=== PATIENT | male | born 1995 | race Caucasian/White ===

== ENCOUNTER 2023-06-15 01:39 | Outpatient (CLI) | payer BC, SELFPAY ==
[2023-06-17 09:45] LABS: Acrosom Defect 23.5 %; Appearance Normal; Container Type 50 mL Conical; Double Forms 1.5 %; Head Shape Abnormal 28.5 %; Motile/Ejaculate 3.8 x10(6) (>=9.0); Motile/mL 2.1 x10(6) (>=6.0); Motility 46 % (>=40); Semen Volume 1.8 mL (>=1.5); Sperm/mL 4.6 x10(6) (>=15.0); Strict Morph NL 1.5 % (>=4.0); Study Type Semen
== END 2023-06-15 01:40 | disposition home or self-care (01) ==
LOC: LBO 01:39
PROVIDERS: Visit Provider Obstetrics & Gynecology
DX: Z31.41 Encounter for fertility testing (principal)
CPT/HCPCS: 89240; 89310

== ENCOUNTER 2023-12-08 19:03 | Outpatient (REF) | payer BC, SELFPAY ==
[2023-12-12 10:51] LABS: Abstinence 2.5 d; Appearance Normal; Container Type 50 mL Conical; Midpiece Defect 3.5 %; Motile/Ejaculate 15.8 x10(6) (>=9.0); Motile/mL 6.3 x10(6) (>=6.0); Motility 37 % (>=40); Semen Volume 2.5 mL (>=1.5); Strict Morph NL 3.5 % (>=4.0); Study Type Semen; pH 7.5 (>=7.2)
== END 2023-12-08 19:04 | disposition home or self-care (01) ==
LOC: LBN 19:03
PROVIDERS: Visit Provider Obstetrics & Gynecology Reproductive Endocrinology
DX: Z31.41 Encounter for fertility testing (principal)
CPT/HCPCS: 89240; 89310

== ENCOUNTER 2025-05-15 03:17 | Outpatient (CLI) | payer BC, SELFPAY | END 2025-05-15 03:18 | disposition home or self-care (01) | LOC: LBO 11:54 → LBN 11:58 | PROVIDERS: Visit Provider Obstetrics & Gynecology Reproductive Endocrinology | DX: Z31.41 Encounter for fertility testing (principal) | CPT/HCPCS: 89240; 89310 ==

== ENCOUNTER 2025-05-29 13:31 | Outpatient (REF) | payer BC, SELFPAY | END 2025-05-29 13:32 | disposition home or self-care (01) | LOC: LBN 13:31 | PROVIDERS: Visit Provider Obstetrics & Gynecology Reproductive Endocrinology | DX: Z31.41 Encounter for fertility testing (principal) | CPT/HCPCS: 89240; 89310 ==